=== PATIENT | female | born 1990 | race Caucasian/White ===

== ENCOUNTER → 2017-11-12 11:21 | Outpatient (CLI) | payer MEDICAID, SELFPAY ==
[2017-11-12 11:52] LABS: Basophils % 0.2 % (0.1-2.0); Eosinophils # 0.1 K/mm3 (0.0-0.4); Eosinophils % 0.9 % (0.1-12.0); Hematocrit 41.3 % (37.0-47.0); Hemoglobin 13.8 g/dL (12.2-16.2); Lymphocytes # 2.2 K/mm3 (0.7-4.5); Lymphocytes % 30.4 K/mm3 (10-50); Mean Corpuscular HGB Conc 33.4 g/dL (31.8-35.4); Mean Corpuscular Hemoglobin 33.1 pg (27.0-31.2); Mean Corpuscular Volume 99.1 fl (81-99); Mean Platelet Volume 7.9 fl (7.4-10.4); Monocytes # 0.2 K/mm3 (0.1-1.0); Monocytes % 3.3 % (1.7-9.3); Neutrophils # 4.8 K/mm3 (1.8-7.8); Neutrophils % 65.3 % (37.0-80.0); Platelet Count 300 K/mm3 (142-424); Red Blood Count 4.17 M/mm3 (4.20-5.40); Red Cell Distribution Width 12.6 % (11.5-17.5); White Blood Count 7.4 K/mm3 (4.8-10.8)
[2017-11-15 11:52] LABS: HIV Screen 4th Generation wRfx Non Reactive (Non Reactive); Hepatitis B Surface Antigen Negative (Negative); Hepatitis C Antibody >11.0 s/co ratio (0.0-0.9); Rapid Plasma Reagin Ab Titer Non Reactive (NonRea<1:1); Rubella Antibodies, IgG 1.67 index (Immune >0.99)
== END ==
PROVIDERS: PCP Nurse Practitioner Obstetrics & Gynecology; Visit Provider Nurse Practitioner Obstetrics & Gynecology
DX: Z34.90 Encounter for supervision of normal pregnancy, unspecified, unspecified trimester (principal)
CPT/HCPCS: 36415; 85025; 86592; 86703; 86762; 86850; 87340; 87380; G0432

== ENCOUNTER → 2017-11-30 13:15 | Outpatient (CLI) | payer MEDICAID, SELFPAY ==
--- NOTE | 2017-11-30 13:18 | US_ITS ---
US OB /maternal detail: OB ultrasound complete INDICATION: anatomy evaluation, OB ultrasound complete ITS.REASON: dates ORDERING PHYSICIAN: Russ Kahn MD PATIENT AGE: 27 years TECHNIQUE: ultrasound transabdominal scanning. COMPARISON: No previous relevant studies. FINDINGS: Single viable intrauterine gestation. cephalic position. Placenta: anterior placenta grade 1. There is adequate amount fluid. The cervix appears satisfactory. Closed and measuring 3 cm in length. Complete survey performed and was unremarkable on the submitted images as in PACS. No discrete anomalies identified on survey imaging by technologist. Active fetus. Three-vessel cord with satisfactory umbilical cord insertion. 4- chamber heart noted. Survey of brain & ventricles. Face and neck survey unremarkable. Diaphragm and chest views unremarkable. Abdomen: Both kidneys noted and unremarkable. Stomach noted and satisfactory. Spine: Survey of the spine satisfactory with no anomalies identified nor imaged. Both arms and legs noted. Amniotic Fluid: Adequate. Maternal adnexa: No significant findings. Measurements: Average ultrasound age 20w3d. Gestational Age not given. Estimated due date by ultrasound age 0804/16/2018. Estimated weight 354 grams. The weight percentile based on last menstrual period is not calculated. BPD = 20w3d OFD = 20w4d HC = 19w5d AC = 20w4d FL = 20w4d Heart Rate = 156 Cerebellum = 19w0d Humerus = 19w5d HC/AC is 1.12. CI is 79%. FL/BPD is 70%. FL/AC is 22%. IMPRESSION: Single live fetus which is in cephalic presentation with an average ultrasound age of 20 weeks 3 days. No obvious anomalies. Please see above for detail.
== END ==
PROVIDERS: Visit Provider Nurse Practitioner Obstetrics & Gynecology
DX: O26.841 Uterine size-date discrepancy, first trimester (principal); Z3A.13 13 weeks gestation of pregnancy
CPT/HCPCS: 76811

== ENCOUNTER → 2018-02-18 19:12 | Outpatient (REF) | payer MEDICAID, SELFPAY ==
[2018-02-18 18:57] LABS: Amphetamine/Metha Screen,Urine Negative ng/mL (<1000); Barbiturates Screen,Urine Negative ng/mL (<200); Benzodiazepines Screen,Urine Negative ng/mL (200); Cannabinoid Screen,Urine Negative ng/mL (<50); Cocaine Screen,Urine Negative ng/g (<300); Methadone Screen,Urine Negative ng/mL (<300); Opiate Screen,Urine Negative ng/mL (<300); Phencyclidine Screen,Urine Negative ng/mL (<25)
[2018-03-02 03:02] LABS: Buprenorphine, Urine POSITIVE
[2018-03-02 03:03] LABS: Buprenorphine POSITIVE; Norbuprenorphine POSITIVE
== END ==
LOC: LAB 19:12
PROVIDERS: Visit Provider Nurse Practitioner Obstetrics & Gynecology
DX: Z34.90 Encounter for supervision of normal pregnancy, unspecified, unspecified trimester (principal); O99.320 Drug use complicating pregnancy, unspecified trimester; F11.20 Opioid dependence, uncomplicated; Z79.891 Long term (current) use of opiate analgesic
CPT/HCPCS: 80305; 80307

== ENCOUNTER → 2018-02-26 13:51 | Outpatient (CLI) | payer MEDICAID, SELFPAY ==
--- NOTE | 2018-02-26 | US_ITS ---
US OB biophysical profile, US OB follow up, US SD Ratio umbilcal artery: Indication: Small for gestational age ITS.REASON: US OB- SGA ORDERING PHYSICIAN: Russ Kahn MD PATIENT AGE: 27 years COMPARISON: 11/30/2017 FINDINGS: There is a single live fetus which is in cephalic presentation. The following parameters are obtained: Average ultrasound age is 33w1d. Estimated due date by ultrasound is 04/15/2018. Estimated weight is 2051 g. This is 34th percentile based on established due date of 04/16/2018 BPD: 33w6d OFD: 33w2d HC: 32w2d AC: 32w6d FL: 32w2d heart rate:136 bpm. HC/AC: 1.04 (0.96-1.11) Cephalic index: 80% (70-86%) FL/BPD: 74% (71-87%) FL/AC: 22% (20-24%) Amniotic fluid index: 9 cm Qualitative AFV: 2 breathing movements: 2 Gross body movements: 2 Tone: 2 Biophysical profile score: 8/8 Doppler evaluation of the umbilical artery: There may be only a single umbilical artery. SD ratio: 4.7 Resistive index: 0.79 No obvious anomalies evident. Placenta: Anterior and grade 2 Cervix: Appears closed and measures 2 cm IMPRESSION: Single live fetus present in the cephalic presentation with an average ultrasound age of 33 weeks and 1 day. All parameters correlate. There has been adequate progression. Estimated weight is 2051 g which is 34th percentile based on established due date. The placenta is anterior and grade 2. Umbilical artery Doppler shows an elevated SD ratio of 4.7 with an elevated resistive index of 0.79. There does appear to be only a single umbilical artery
== END ==
PROVIDERS: PCP Family Medicine; Visit Provider Nurse Practitioner Obstetrics & Gynecology
DX: O36.5131 Maternal care for known or suspected placental insufficiency, third trimester, fetus 1 (principal)
CPT/HCPCS: 76816; 76819; 76820

== ENCOUNTER → 2018-03-28 16:05 | Outpatient (REF) | payer MEDICAID, SELFPAY | LOC: LAB 16:05 | PROVIDERS: Visit Provider Nurse Practitioner Obstetrics & Gynecology | DX: Z34.90 Encounter for supervision of normal pregnancy, unspecified, unspecified trimester (principal) | CPT/HCPCS: 86403 ==

== ENCOUNTER 2018-04-03 13:43 | Inpatient (IN) ==
[2018-04-03 14:13] VITALS: BP 129/72
[2018-04-03 14:25] LABS: Basophils % 0.2 % (0.1-2.0); Eosinophils % 0.5 % (0.1-12.0); Hematocrit 36.6 % (37.0-47.0); Hemoglobin 12.3 g/dL (12.2-16.2); Lymphocytes % 22.4 K/mm3 (10-50); Mean Corpuscular HGB Conc 33.6 g/dL (31.8-35.4); Mean Corpuscular Hemoglobin 32.8 pg (27.0-31.2); Mean Corpuscular Volume 97.7 fl (81-99); Mean Platelet Volume 9.5 fl (7.4-10.4); Monocytes # 0.3 K/mm3 (0.1-1.0); Monocytes % 3.4 % (1.7-9.3); Neutrophils # 6.6 K/mm3 (1.8-7.8); Neutrophils % 73.5 % (37.0-80.0); Platelet Count 177 K/mm3 (142-424); Red Blood Count 3.74 M/mm3 (4.20-5.40); Red Cell Distribution Width 12.4 % (11.5-17.5)
[2018-04-03 14:46] LABS: Microscopic, Urine URINE MICROSCOPIC (MICROSCOPIC)
[2018-04-03 14:48] LABS: Appearance,Urine SL CLOUDY (Clear); Bilirubin,Urine Negative (Negative); Blood, Urine Negative (Negative); Color,Urine YELLOW (Yellow); Glucose,Urine (UA) Negative (Negative); Ketones,Urine Negative (Negative); Leukocyte Esterase,Urine 3+ (Negative); Protein,Urine Negative (Negative); Urobilinogen,Urine 0.2 EU/dl (0.2)
[2018-04-03 15:00] LABS: Bacteria,Urine 4+ /lpf; Squamous Epithelial Cell,Urine 20-50 #/hpf (0-5)
[2018-04-03 15:02] LABS: Amphetamine/Metha Screen,Urine Negative ng/mL (<1000); Barbiturates Screen,Urine Negative ng/mL (<200); Benzodiazepines Screen,Urine Negative ng/mL (<200); Cannabinoid Screen,Urine Negative ng/mL (<50); Cocaine Screen,Urine Negative ng/mL (<300); Methadone Screen,Urine Negative ng/mL (<300); Opiate Screen,Urine Negative ng/mL (<300); Phencyclidine Screen,Urine Negative ng/mL (<25)
--- NOTE | 2018-04-03 15:23 | History & Physical Report ---
OB - H&P: HPI Antepartum - History of Present Illness Chief complaint: Contractions History of present illness: She started having regular contractions by 1030 this morning. She is a 3 para 2 at 38+ weeks gestational age. - History of Present Criteria for establishing EDC:: LMP confirmed by 1st trimester US care: good care Ultrasounds: normal 1st trimester US, normal mid trimester US Obstetrical complications: none Medical complications: none [facility] History I have reviewed the patient's past medical history: Yes Other Surgeries: No: Amputation: No Fractures: No - *Social History Smoking Status: Current every day smoker Alcohol Intake: never Substance Use Type: denies use *Family Hx:: No significant family history Para: 2 Review of Systems - Review of Systems Review of systems:: pertinent systems reviewed and negative unless documented below Meds Home Medications Medication Instructions Recorded Confirmed Type buprenorphine HCl 8 mg sublingual 8 mg SUBLINGUAL BID 01/04/18 04/03/18 History tablet Ferrous Sulfate 325 mg PO DAILY 04/03/18 04/03/18 History Vit Calc,Iron,Folic [Kpn] 1 tab PO ONCE 04/03/18 04/03/18 History metroNIDAZOLE [Flagyl] 500 mg PO BID 04/03/18 04/03/18 History Allergies Allergy/AdvReac Type Severity Reaction Status Date / Time No Known Allergies Allergy Verified 04/01/18 14:25 OB - H&P: Exam - Physical Exam Vital signs: Temp Pulse Resp BP Pulse Ox 98.6 F 87 20 129/72 98 04/03/18 13:49 04/03/18 13:49 04/03/18 13:49 04/03/18 13:49 04/03/18 13:49 - Constitutional no acute distress - Routine HEENT Exam Head: Present: normocephalic - Routine Neck Exam Present: supple - Routine Respiratory Exam Comments: She is breathing normally and in no respiratory distress - Routine Cardiovascular Exam Present: RRR - Routine Abdominal Exam Present: soft Comments: Gravid abdomen - Routine Exam Comments: Her cervix is 8 cm dilated and 100% effaced. She is station 0. I ruptured membranes and there is clear fluid. She has an epidural OB - Results - Labs Labs: Short CBC 04/03/18 Range/Units 14:08 WBC 9.0 (4.8-10.8) K/mm3 Hgb 12.3 (12.2-16.2) g/dL Hct 36.6 L (37.0-47.0) % Plt Count 177 (142-424) K/mm3 Urine 04/03/18 Range/Units 14:36 Urine Color Yellow (Yellow) Urine Appearance Sl cloudy (Clear) Urine pH 8.0 (5.0-8.5) Ur Specific [place] 1.010 (1.005-1.030) Urine Protein Negative (Negative) Urine Glucose (UA) Negative (Negative) OB - A/P Antepartum (1) complicated by subutex maintenance, antepartum Current visit: No Status: Acute (2) Chronic hepatitis C complicating , antepartum Current visit: No Status: Chronic - Additional Plan Planning to breastfeed?: Yes Plan: expectant management Additional Information:: She is 8 cm dilated and I ruptured her membranes. We will start oxytocin and expected vaginal delivery.
--- NOTE | 2018-04-03 17:19 | Procedure Note ---
- Delivery Note Delivery Date:: 04/03/18 Delivery Time:: 17:02 Anesthesia Type: Epidural Was labor medically induced?: No Induction method: none delivered prior to 39 weeks?: Yes Justification for early elective delivery:: Active Labor Infant Gender: Female at 1 minute: 8 at 5 minutes: 9 AF:: Clear fluid Delivery Procedure:: She is a 19-year-old 3 para 2 who was 38+ weeks gestational age. She came in in active labor and was found to be 7 cm dilated. She had her membranes ruptured and under labor epidural progressed to full dilation. She delivered spontaneously a liveborn female child at 5:02 PM in the evening of April 03, 2018. On deliver the head the anterior shoulder then delivered followed by the rest of the 's body atraumatically. The baby was active and crying so we elected to let the court continue to pulsate for approximately 1 minute. The nasopharynx and oropharynx were bulb suctioned. The cord was then clamped and cut and the was placed on the mother's abdomen for further care. The nurses assigned Apgars of 8 at 1 minute and 9 at 5 minutes. We then obtained cord blood as well as cord pH. The pH was 7.32. Using gentle traction on the cord and countertraction on the fundus I was able to easily the placenta intact. Had a normal three-vessel cord. There were no perineal or vaginal lacerations. She is known to have hepatitis C positive. She plans to breast-feed. Her estimated blood loss was approximately 200 cc. Placental Delivery Description: Spontaneous
--- NOTE | 2018-04-04 06:43 | Progress Note ---
[facility] Anesthesia Checklist - Patient Identification Patient Identification: Arm Band, Verbal (Name & ) - Structural Data Admitted From: Home Planned Operative Procedure/s: Labor Epidural Consent for Planned Operative Procedure(s) Verified: Yes Verified Documents: Surgical Consent, History and Physical - Additional verifications Patient : Yes Anesthesia Reactions: No - Airway Assessment C-Spine Mobility Assessed: Yes TMJ Mobility Assessed: Yes Dentition: Good Dentition - Neurological Assessment Level of Consciousness: Awake Hx Seizures: No Numbness or tingling in extremities: No - Anesthesia Plan Anesthesia Risk discussed: Yes Anesthesia Plan: Verified ASA Class: III Anesthesia Type: Epidural [facility] Anesthesia HX I have reviewed the patient's past medical history: Yes Other Medical History: Reports: Other (Hx drug abuse, Hep C, smokes tobacco) Laterality Cases: Bilateral: Tonsillectomy Other Surgeries: Yes: Cholecystectomy. No: Amputation: No Fractures: No *Family Hx:: No significant family history
--- NOTE | 2018-04-04 08:16 | Progress Note ---
Internal Medicine - PN: Lance *Date: 04/04/18 *Time: 08:15 Interval history: She continues to do well. She is eating and drinking and ambulating. She is breast-feeding. Her lochia is normal. Her pain is controlled. Exam Vital signs and Labs for Last 24 Hours: Temp Pulse Resp BP Pulse Ox 98.6 F 87 20 129/72 98 04/03/18 13:49 04/03/18 13:49 04/03/18 13:49 04/03/18 13:49 04/03/18 13:49 Laboratory Results - last 24 hr 04/03/18 14:08: WBC 9.0, RBC 3.74 L, Hgb 12.3, Hct 36.6 L, MCV 97.7, MCH 32.8 H , MCHC 33.6, RDW 12.4, Plt Count 177, MPV 9.5, Neut % (Auto) 73.5, Lymph % (Auto ) 22.4, [place] % (Auto) 3.4, Eos % (Auto) 0.5, Baso % (Auto) 0.2, Neut # (Auto) 6.6, Lymph # (Auto) 2.0, [place] # (Auto) 0.3, Eos # (Auto) 0.0, Baso # (Auto) 0.0 04/03/18 14:08: Blood Type A Positive, Antibody Screen Negative 04/03/18 14:36: Urine Color Yellow, Urine Appearance Sl cloudy, Urine pH 8.0, Ur Specific [place] 1.010, Urine Protein Negative, Urine Glucose (UA) Negative, Urine Ketones Negative, Urine Blood Negative, Urine Nitrate Negative, Urine Bilirubin Negative, Urine Urobilinogen 0.2, Ur Leukocyte Esterase 3+ A, Urine RBC None, Urine WBC 5-10, Ur Squamous Epith Cells 20-50, Urine Bacteria 4+ 04/03/18 14:36: Urine Opiates Screen Negative, Urine Methadone Screen Negative, Ur Barbituates Screen Negative, Ur Phencyclidine Scrn Negative, Ur Amphetamines Screen Negative, U Benzodiazepines Scrn Negative, Urine Cocaine Screen Negative , U Marijuana (THC) Screen Negative 04/03/18 17:12: Cord ABG pH 7.32 L I & O for Last 24 hours: Intake & Output 04/01/18 04/02/18 04/03/18 04/04/18 11:59 11:59 11:59 11:59 Weight 125 lb - Constitutional no acute distress Assessment and Plan (1) complicated by subutex maintenance, antepartum Current visit: No Status: Acute Category: Medical Code(s): O99.320 - Drug use complicating , unspecified trimester; F11.20 - Opioid dependence, uncomplicated; 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 We will plan to send her home tomorrow.
[2018-04-04 08:20] LABS: Hemoglobin 12.3 g/dL (12.2-16.2)
--- NOTE | 2018-04-04 17:49 | Discharge Summary ---
General - General Admission date:: 04/03/18 Discharge date: 04/05/18 HPI HPI: She is a 27-year-old 4 para 2 aborta 1 who is 38 and 1 weeks gestation. She came in active labor and was found to have an centimeters dilated. Result of that she is admitted for delivery. Hospital Course Hospital Course: She progressed under labor epidural to full dilation and delivered spontaneously a liveborn female child at 5:02 PM in the evening of the 2017. The baby weighed 6 lbs. 0 oz. and was 18 inches long. She had Apgars of 8 at 1 minute and 9 at 5 minutes. There were no perineal or vaginal lacerations She has a positive blood, she is rubella immune and was group A streptococcus negative. She takes Subutex. She was seen by social media sr strategy manager and apparently they have decided not to send the baby home with her. She is discharged home to follow-up with me in approximately 2 weeks time. She will continue with her vitamins and iron. She will continue with over- the-counter analgesics. Objective Vital signs: Temp Pulse Resp BP Pulse Ox 98.6 F 87 20 129/72 98 04/03/18 13:49 04/03/18 13:49 04/03/18 13:49 04/03/18 13:49 04/03/18 13:49 no acute distress Results Labs on day of discharge: Labs from last 24 hours 04/04/18 07:35 Hgb 12.3 Hct 36.0 L Preliminary micro results at discharge 04/03/18 14:36 Urine Culture - Preliminary Urine,Clean Catch NO GROWTH AFTER 24 HOURS DS: Diagnosis - Discharge Diagnosis (1) complicated by subutex maintenance, antepartum Status: Acute (2) Chronic hepatitis C complicating , antepartum Status: Chronic (3) Normal delivery at term Status: Acute Discharge Plan - Patient Discharge Instructions ACTIVITY: No heavy lifting DIET: continue same diet - Follow up Plan Disposition: Home, Self-Intermediate Medications: Home Medications Medication Instructions Recorded Confirmed Type buprenorphine HCl 8 mg sublingual 8 mg SUBLINGUAL BID 01/04/18 04/03/18 History tablet Ferrous Sulfate 325 mg PO DAILY 04/03/18 04/03/18 History Vit Calc,Iron,Folic [Kpn] 1 tab PO DAILY 04/03/18 04/04/18 History Prescriptions/Medication Reconciliation: Continue buprenorphine HCl 8 mg sublingual tablet 8 mg SUBLINGUAL BID Ferrous Sulfate 325 mg PO DAILY Vit Calc,Iron,Folic [Kpn] 1 tab PO DAILY
--- NOTE | 2018-04-05 12:23 | Discharge Summary ---
DS: Providers Date of admission: 04/03/18 14:28 Attending physician on admission: Russ Kahn Consults: 04/03/18 14:21 Care Management Consult [Consult to Case Management] [CONS] Routine Comment: pt took subutex during Discharging clinician: Neema Guy DS: Diagnosis - Discharge Diagnosis (1) complicated by subutex maintenance, antepartum Status: Acute (2) Chronic hepatitis C complicating , antepartum Status: Chronic (3) Normal delivery at term Status: Acute DS: Medications - Discharge Medications Prescriptions: New Nicotine [Nicotine Patch 21mg/24hrs] 21 mg TD DAILY #30 patch Continue buprenorphine HCl 8 mg sublingual tablet 8 mg SUBLINGUAL BID Ferrous Sulfate 325 mg PO DAILY Vit Calc,Iron,Folic [Kpn] 1 tab PO DAILY OB - DS: Summary Hospital course: Ms. Mitchell is a 27 year old female s/p and discharged on PPD #2. consumer services consultant consult with placement of with family member resulting from cabinet case. Medical course uncomplicated. Will continue subutex through clinic after discharge. Time spent discussing smoking cessation with patient: 3 to 10 minutes - Peripartum Data Delivery method: spontaneous vaginal delivery complications: none - Status at Discharge Functional status at discharge: independent ambulation Overall status at discharge: patient is progressing back to baseline - Time Spent with Patient Total time spent providing and/or coordinating discharge services: Exam Vital signs and Labs for Last 24 Hours: Temp Pulse Resp BP Pulse Ox 98.6 F 87 20 129/72 98 04/03/18 13:49 04/03/18 13:49 04/03/18 13:49 04/03/18 13:49 04/03/18 13:49 I & O for Last 24 hours: Intake & Output 04/03/18 04/04/18 04/05/18 04/06/18 11:59 11:59 11:59 11:59 Weight 125 lb Microbiology Reports for the Last 24 Hours: Microbiology 04/03/18 14:36 Urine,Clean Catch Urine Culture - Preliminary NO GROWTH AFTER 24 HOURS - Constitutional no acute distress - *Routine Respiratory Exam Absent: respiratory distress - *Routine Cardiovascular Exam Absent: tachycardia - *Routine Abdominal Exam Present: soft. Absent: tenderness, distended - *Routine Skin Exam Present: intact, dry - *Routine Neurological Exam Present: alert, oriented X3 - Routine Psychiatric Exam Present: normal affect Results Labs on day of discharge: Preliminary micro results at discharge 04/03/18 14:36 Urine Culture - Preliminary Urine,Clean Catch NO GROWTH AFTER 24 HOURS Discharge Plan - Patient Discharge Instructions ACTIVITY: No heavy lifting, Other (pelvic rest) DIET: continue same diet Additional Instructions: NO HEAVY LIFTING NOTHING IN VAGINA FOR [address] FOLLOW-UP WITH DR. KAHN ON 04/17/2018 @ 2:00 Patient Instructions: [facility] Post Discharge Instructions - Follow up Plan Disposition: Home, Self-Half-Way Medications: Home Medications Medication Instructions Recorded Confirmed Type buprenorphine HCl 8 mg sublingual 8 mg SUBLINGUAL BID 01/04/18 04/03/18 History tablet Ferrous Sulfate 325 mg PO DAILY 04/03/18 04/03/18 History Vit Calc,Iron,Folic [Kpn] 1 tab PO DAILY 04/03/18 04/04/18 History Prescriptions/Medication Reconciliation: New Nicotine [Nicotine Patch 21mg/24hrs] 21 mg TD DAILY #30 patch Continue buprenorphine HCl 8 mg sublingual tablet 8 mg SUBLINGUAL BID Ferrous Sulfate 325 mg PO DAILY Vit Calc,Iron,Folic [Kpn] 1 tab PO DAILY
== END 2018-04-05 12:20 | disposition home or self-care (01) ==
LOC: OBOUT 13:43 → OB 13:45
PROVIDERS: ADMIT Nurse Practitioner Obstetrics & Gynecology; ATTEND Nurse Practitioner Obstetrics & Gynecology

== ENCOUNTER → 2019-08-20 14:50 | Outpatient (CLI) | payer MEDICAID, SELFPAY ==
--- NOTE | 2019-08-20 14:51 | US_ITS ---
PROCEDURE: US OB TRANSVAGINAL CLINICAL INDICATION: US OB Dates COMPARISON: OBBIO US OB biophysical profile from 02/26/2018 FINDINGS: There is a single live intrauterine gestation with an average ultrasound age of 12 weeks 2 days. BPD is 12 weeks 5 days, HC 12 weeks 3 days, AC 12 weeks 1 day, FL 12 weeks 1 day, crown-rump length 11 weeks 6 days. heart and body motion noted. Chorion and amnion have not yet fused. Placenta is forming posteriorly. Yolk sac is present. Unremarkable adnexa. heart tones noted within FHR 154 beats per minute IMPRESSION: Live IUP with an average ultrasound age of 12 weeks 2 days Estimated due date by Ultrasound is 03/01/2020 Dictated by: Haider Santoro MD 08/20/2019 18:04 Electronically signed by Haider Santoro MD in [place] 08/20/2019 18:04
== END ==
PROVIDERS: Visit Provider Nurse Practitioner Obstetrics & Gynecology
DX: O26.841 Uterine size-date discrepancy, first trimester (principal)
CPT/HCPCS: 76817

== ENCOUNTER → 2019-09-29 15:56 | Outpatient (CLI) | payer MEDICAID, SELFPAY ==
[2019-09-29 16:20] LABS: Basophils % 0.3 % (0.1-2.0); Eosinophils # 0.1 K/mm3 (0.0-0.4); Eosinophils % 0.8 % (0.1-12.0); Hematocrit 41.1 % (37.0-47.0); Hemoglobin 13.8 g/dL (12.2-16.2); Lymphocytes # 2.9 K/mm3 (0.7-4.5); Lymphocytes % 33.1 % (10-50); Mean Corpuscular HGB Conc 33.5 g/dL (31.8-35.4); Mean Corpuscular Hemoglobin 32.9 pg (27.0-31.2); Mean Platelet Volume 8.1 fl (7.4-10.4); Monocytes # 0.2 K/mm3 (0.1-1.0); Monocytes % 2.3 % (1.7-9.3); Neutrophils # 5.5 K/mm3 (1.8-7.8); Neutrophils % 63.6 % (37.0-80.0); Platelet Count 246 K/mm3 (142-424); Red Cell Distribution Width 13.1 % (11.5-17.5); White Blood Count 8.7 K/mm3 (4.8-10.8)
[2019-10-01 10:29] LABS: Rapid Plasma Reagin Ab Titer Non Reactive (NonRea<1:1)
[2019-10-01 18:18] LABS: HIV Screen 4th Generation wRfx Non Reactive (Non Reactive); Hepatitis B Surface Antigen Negative (Negative); Hepatitis C Antibody >11.0 s/co ratio (0.0-0.9); Rubella Antibodies, IgG 1.79 index (Immune >0.99)
[2019-10-04 23:50] LABS: HCV Genotype Charge YES; Hepatitis C Genotype 3 (.)
== END ==
PROVIDERS: Visit Provider Nurse Practitioner Obstetrics & Gynecology
DX: Z34.90 Encounter for supervision of normal pregnancy, unspecified, unspecified trimester (principal)
CPT/HCPCS: 36415; 85025; 86592; 86703; 86762; 86850; 87340; 87380; 87522; 87902; G0432

== ENCOUNTER → 2019-10-13 15:01 | Outpatient (CLI) | payer MEDICAID, SELFPAY ==
--- NOTE | 2019-10-13 15:06 | US_ITS ---
PROCEDURE: US OB /MATERNAL DETAIL CLINICAL INDICATION: screening for chromosomal anomalies Anatomy exam COMPARISON: US OB TRANSVAGINAL from 08/20/2019 FINDINGS: There is a single live fetus in breech presentation. The placenta is posterior and fundal in implantation. There is average amount of of amniotic fluid. The cervix is closed and measures 3.5 cm transabdominal. Complete survey performed and was unremarkable on the submitted images as in PACS. No discrete anomalies identified on survey imaging by technologist. Active fetus. Three-vessel cord with satisfactory umbilical cord insertion. 4- chamber heart noted. Survey of brain & ventricles Unremarkable. Face and neck survey unremarkable. Diaphragm and chest views unremarkable. Abdomen: Both kidneys noted and unremarkable. Stomach noted and satisfactory. Spine: Survey of the spine satisfactory with no anomalies identified nor imaged. Both arms and legs noted. Amniotic Fluid: Adequate. Maternal adnexa: No significant findings. Measurements: Average ultrasound age 19weeks 5days. Gestational Age 20 weeks 0 days Estimated due date by ultrasound age 0603/03/2020. Estimated weight 312g BPD = 19weeks 6days OFD = 19 weeks 6 days HC = 19weeks AC = 20weeks FL = 19weeks 6days Growth Percentile= 33% Heart Rate = 142bpm Cerebellum = 19weeks 3days Humerus = 20weeks HC/AC is 1.11 CI is 0.8 FL/BPD is 0.7 FL/AC is 0.22 IMPRESSION: Live IUP in breech presentation with an average ultrasound age of 19 weeks 5 days. All parameters correlate. heart body motion noted with no obvious anomalies. Please see above for detail. Dictated by: Haider Santoro MD 10/13/2019 17:25 Electronically signed by Haider Santoro MD in [place] 10/13/2019 17:25
== END ==
PROVIDERS: Visit Provider Nurse Practitioner Obstetrics & Gynecology
DX: Z36.0 Encounter for antenatal screening for chromosomal anomalies (principal)
CPT/HCPCS: 76811

== ENCOUNTER → 2019-12-27 08:59 | Outpatient (CLI) | payer MEDICAID, SELFPAY ==
[2019-12-27 09:48] LABS: Glucose,Fasting 78 mg/dl (74-100)
[2019-12-27 10:43] LABS: Glucose 1 Hour 74 mg/dL (74-100)
== END ==
PROVIDERS: Visit Provider Nurse Practitioner Obstetrics & Gynecology
DX: Z34.90 Encounter for supervision of normal pregnancy, unspecified, unspecified trimester (principal)
CPT/HCPCS: 36415; 82951

== ENCOUNTER → 2020-01-14 15:22 | Outpatient (CLI) | payer MEDICAID, SELFPAY ==
--- NOTE | 2020-01-14 15:27 | US_ITS ---
PROCEDURE: US OB BIOPHYSICAL PROFILE CLINICAL INDICATION: 20 wk gestation of and (SGA) Small for gestational TECHNIQUE: FINDINGS: The following parameters are obtained: Average ultrasound age is Average 31weeks 6days Estimated due date by ultrasound is 03/11/2020. Estimated weight is 1,799g. The this is 7th percentile indicating small for gestational age. The fetus is in cephalic presentation. The cervix is closed at 4 cm. Placenta is posterior in implantation and grade 3. No previa. BPD: 32 weeks 0 days OFD: 32 weeks 2 days HC: 32 weeks 0 days AC: 31 weeks 2 days FL: 32 weeks 1 day heart rate: 150bpm bpm. HC/AC: 1.07 Cephalic index: 0.77 FL/BPD: 0.78 FL/AC: 0.23 Amniotic fluid index: 11.39cm Qualitative AFV: 2 breathing movements: 2 Gross body movements: 2 Tone: 2 Biophysical profile score: 8 IMPRESSION: There is a single live intrauterine gestation which is in cephalic presentation with an average ultrasound age of 31 weeks and 6 days. Estimated weight is 1799 g which is 7th percentile indicating small for gestational age. Placenta is posterior and grade 3. Biophysical profile is 8 of 8. Amniotic fluid index is normal at 11 cm. Please see above for details Dictated by: Haider Santoro MD 01/14/2020 19:16 Electronically signed by Haider Santoro MD in [place] 01/14/2020 19:16
== END ==
PROVIDERS: Visit Provider Nurse Practitioner Obstetrics & Gynecology
DX: O36.5990 Maternal care for other known or suspected poor fetal growth, unspecified trimester, not applicable or unspecified (principal); Z3A.20 20 weeks gestation of pregnancy
CPT/HCPCS: 76816; 76819

== ENCOUNTER → 2020-02-04 17:06 | Outpatient (CLI) | payer MEDICAID, SELFPAY | PROVIDERS: Visit Provider Nurse Practitioner Obstetrics & Gynecology | DX: Z34.90 Encounter for supervision of normal pregnancy, unspecified, unspecified trimester (principal) | CPT/HCPCS: 86403 ==

== ENCOUNTER 2020-02-17 05:26 | Inpatient (IN) | payer MEDICAID, SELFPAY ==
[2020-02-17] VITALS (7 sets, daily range): BP systolic 115–126; BP diastolic 76–94; PULSE 53–71; RESP 16–18; TEMP 36.7–37.1; O2SAT 99–100; BMI 24.3
[2020-02-17 06:32] LABS: Microscopic, Urine URINE MICROSCOPIC (MICROSCOPIC)
[2020-02-17 06:33] LABS: Basophils % 0.2 % (0.1-2.0); Eosinophils # 0.2 K/mm3 (0.0-0.4); Hematocrit 34.4 % (37.0-47.0); Hemoglobin 11.9 g/dL (12.2-16.2); Lymphocytes # 3.3 K/mm3 (0.7-4.5); Lymphocytes % 42.3 % (10-50); Mean Corpuscular HGB Conc 34.7 g/dL (31.8-35.4); Mean Corpuscular Hemoglobin 34.6 pg (27.0-31.2); Mean Corpuscular Volume 99.7 fl (81-99); Mean Platelet Volume 9.3 fl (7.4-10.4); Monocytes # 0.3 K/mm3 (0.1-1.0); Monocytes % 3.9 % (1.7-9.3); Neutrophils % 51.6 % (37.0-80.0); Platelet Count 191 K/mm3 (142-424); Red Blood Count 3.45 M/mm3 (4.20-5.40); Red Cell Distribution Width 12.6 % (11.5-17.5); White Blood Count 7.7 K/mm3 (4.8-10.8)
[2020-02-17 06:47] LABS: Appearance,Urine CLEAR (Clear); Bilirubin,Urine Negative (Negative); Blood, Urine Negative (Negative); Color,Urine DK YELLOW (Yellow); Glucose,Urine (UA) Negative (Negative); Ketones,Urine TRACE (Negative); Leukocyte Esterase,Urine 2+ (Negative); Nitrate,Urine Negative (Negative); Protein,Urine Negative (Negative); Specific Gravity, Urine >= 1.030 (1.005-1.030)
[2020-02-17 06:50] LABS: Bacteria,Urine 1+ /lpf
[2020-02-17 06:54] LABS: Amphetamine/Metha Screen,Urine Negative ng/ml (<1000)
[2020-02-17 06:55] LABS: Barbiturates Screen,Urine Negative ng/ml (<200)
[2020-02-17 06:56] LABS: Benzodiazepines Screen,Urine Negative ng/ml (<200); Cannabinoid Screen,Urine Negative ng/ml (<50)
[2020-02-17 06:57] LABS: Cocaine Screen,Urine Negative ng/ml (<300)
[2020-02-17 06:58] LABS: Methadone Screen,Urine Negative ng/ml (<300); Opiate Screen,Urine Negative ng/ml (<300)
[2020-02-17 06:59] LABS: Phencyclidine Screen,Urine Negative ng/ml (<25)
[2020-02-17 07:18] LABS: Coronavirus 19 IgG Antibody Negative (Negative); Coronavirus 19 IgM Antibody Negative (Negative)
--- NOTE | 2020-02-17 08:30 | HMH.LABNOT ---
Labor Note - Subjective: Date: 02/17/20 Time: 08:30 regular contraction - Objective: NST:: Reactive Contractions:: every 2-3 minutes Cervical Dilation:: 2-3 Effacement:: 50% Station: -1 Membranes: artificially ruptured - Fetus: Monitoring?: Yes monitoring type:: External - Assessment: Labor progressing?: Yes Cephalopelvic disproportion?: No Patient Problems: All Active Problems (Acute) Positive urine drug screen (Acute) - Plan: Anesthesia for epidural?: Yes Continue to labor down?: Yes Plan for ?: No Continue to monitor?: Yes Start pushing?: No Comment:: I ruptured her membranes and there was clear fluid.
--- NOTE | 2020-02-17 09:17 | HMH.OBAPHP ---
OB - H&P: HPI Antepartum - History of Present Illness Chief complaint: Intrauterine growth restriction. Comments: She is a 29-year-old 4 para 3 at 37+ weeks gestational age. She has been followed for intrauterine growth restriction and since the baby is less than the third centile we elected to deliver her at term. - History of Present Criteria for establishing EDC:: LMP confirmed by 1st trimester US care: good care Ultrasounds: normal 1st trimester US, normal mid trimester US Obstetrical complications: growth restriction Medical complications: none [facility] History I have reviewed the patient's past medical history: Yes Medical History: Denies:: Seizures *Have you ever received a pneumonia vaccine?: No *Have you received a flu vaccine this season?: No Other Medical History: Reports: Other Laterality Cases: Bilateral: Tonsillectomy Other Surgeries: Yes: Cholecystectomy. No: Amputation: No Fractures: No - *Social History Smoking Status: Current every day smoker Alcohol Intake: never Substance Use Type: denies use *Occupational Status:: employed *Travel in the last 8 weeks: None Family Hx:: No significant family history PACKING ATTENDANT history: Spontaneous Para: 3 Review of Systems - Review of Systems Review of systems:: pertinent systems reviewed and negative unless documented below Meds Home Medications Medication Instructions Recorded Confirmed Type buprenorphine HCl 8 mg sublingual 20 mg SUBLINGUAL DAILY 01/04/18 02/17/20 History tablet RX: Vit Calc,Iron,Folic 1 tab PO DAILY 04/03/18 02/17/20 History [Kpn] RX: Ferrous Fumarate [Ferretts] 325 mg PO DAILY 02/17/20 02/17/20 History Allergies Allergy/AdvReac Type Severity Reaction Status Date / Time No Known Allergies Allergy Verified 02/13/20 11:06 OB - H&P: Exam - Physical Exam Vital signs: Temp Pulse Resp BP Pulse Ox 98.5 F 53 L 18 115/76 99 02/17/20 08:09 02/17/20 08:09 02/17/20 08:09 02/17/20 08:09 02/17/20 08:09 - Constitutional no acute distress - Routine HEENT Exam Head: Present: normocephalic Eye: Present: EOMI, PERRL ENT: Present: mucous membranes moist - Routine Neck Exam Present: supple, full ROM - Routine Respiratory Exam Absent: accessory muscle use (good air entry bilaterally), respiratory distress, wheezes, crackles - Routine Cardiovascular Exam Present: RRR. Absent: murmur - Routine Abdominal Exam Present: soft, normoactive bowel sounds. Absent: tenderness, distended, guarding - Routine Rectal Exam Patient deferred: visual exam, digital exam - Routine Exam Patient deferred: external exam, groin exam, perineal exam - Routine Extremities Exam Present: full ROM. Absent: cyanosis, edema - Routine Skin Exam Present: intact. Absent: cyanosis - Routine Neurological Exam Present: alert, oriented X3 - Routine Psychiatric Exam Present: normal affect OB - Results - Labs Labs: Short CBC 02/17/20 Range/Units 06:15 WBC 7.7 (4.8-10.8) K/mm3 Hgb 11.9 L (12.2-16.2) g/dL Hct 34.4 L (37.0-47.0) % Plt Count 191 (142-424) K/mm3 Urine 02/17/20 Range/Units 06:20 Urine Color Dk yellow (Yellow) Urine Appearance Clear (Clear) Urine pH 6.0 (5.0-8.5) Ur Specific [place] >= 1.030 (1.005-1.030) Urine Protein Negative (Negative) Urine Glucose (UA) Negative (Negative) OB - A/P Antepartum (1) Intrauterine growth restriction (IUGR) affecting care of mother Current visit: Yes Status: Acute (2) complicated by subutex maintenance, antepartum Current visit: Yes Status: Acute (3) Normal delivery Current visit: Yes Status: Acute - Additional Plan Planning to breastfeed?: Yes Plan: induction Additional Information:: She has severe intrauterine growth restriction with the baby less than the third centile. Since she is 37+ weeks gestational age we
--- NOTE | 2020-02-17 09:31 | HMH.ANESCL ---
[facility] Anesthesia Checklist - Structural Data Admitted From: Inpatient Planned Operative Procedure/s: labor epidural Consent for Planned Operative Procedure(s) Verified: Yes - Additional verifications Anesthesia Reactions: No - Airway Assessment C-Spine Mobility Assessed: Yes TMJ Mobility Assessed: Yes Dentition: Good Dentition - Neurological Assessment Level of Consciousness: Awake, Alert, Appropriate - Anesthesia Plan Anesthesia Risk discussed: Yes Anesthesia Plan: Verified ASA Class: II Anesthesia Type: Epidural [facility] History I have reviewed the patient's past medical history: Yes Medical History: Denies:: Seizures *Have you ever received a pneumonia vaccine?: No *Have you received a flu vaccine this season?: No Other Medical History: Reports: Other Anesthesia experience/problems:: none Laterality Cases: Bilateral: Tonsillectomy Other Surgeries: Yes: Cholecystectomy. No: Amputation: No Fractures: No - *Social History Smoking Status: Current every day smoker Alcohol Intake: never Substance Use Type: denies use *Occupational Status:: employed *Travel in the last 8 weeks: None Family Hx:: No significant family history INFORMATION TECH history: Spontaneous Para: 3
--- NOTE | 2020-02-17 11:36 | HMH.LABNOT ---
Labor Note - Subjective: Date: 02/17/20 Time: 11:36 regular contraction - Objective: NST:: Reactive Cervical Dilation:: 4 Effacement:: 90% Station: -1 Membranes: artificially ruptured - Fetus: Monitoring?: Yes monitoring type:: External - Assessment: Labor progressing?: Yes Cephalopelvic disproportion?: No Patient Problems: All Active Problems Intrauterine growth restriction (IUGR) affecting care of mother (Acute) complicated by subutex maintenance, antepartum (Acute) Normal delivery (Acute) (Acute) Positive urine drug screen (Acute) - Plan: Anesthesia for epidural?: Yes Continue to labor down?: Yes Plan for ?: No Continue to monitor?: Yes Start pushing?: No
--- NOTE | 2020-02-17 13:58 | HMH.LABNOT ---
Labor Note - Subjective: Date: 02/17/20 Time: 13:40 regular contraction - Objective: NST:: Reactive Contractions:: every 2-3 minutes Cervical Dilation:: 7 Effacement:: 100% Station: 0 Membranes: artificially ruptured - Fetus: Monitoring?: Yes monitoring type:: External - Assessment: Labor progressing?: Yes Cephalopelvic disproportion?: No Patient Problems: All Active Problems Intrauterine growth restriction (IUGR) affecting care of mother (Acute) complicated by subutex maintenance, antepartum (Acute) Normal delivery (Acute) (Acute) Positive urine drug screen (Acute) - Plan: Anesthesia for epidural?: Yes Continue to labor down?: Yes Plan for ?: No Continue to monitor?: Yes Start pushing?: No
--- NOTE | 2020-02-17 14:48 | HMH.DN ---
- Delivery Note Delivery Date:: 02/17/20 Delivery Time:: 14:37 Anesthesia Type: Epidural Was labor medically induced?: Yes Induction method: per pitocin protocol Gestational age (weeks): 37 Infant delivered prior to 39 weeks?: Yes Justification for early elective delivery:: IUGR Infant Gender: Female at 1 minute: 8 at 5 minutes: 9 Delivery Procedure:: She is a 29-year-old 5 para 3 aborta 1 who is 37 weeks gestational age. She has been followed with a small for gestational age and as result of that was brought in for induction of labor at term. She was started on IV oxytocin and had her membranes ruptured. Under labor epidural she progressed to full dilation and delivered spontaneously a liveborn female child at 2:37 PM in the afternoon of February 17, 2020. On deliver the head it was noted that there is a tight nuchal cord. I was able to deliver the rest the 's body atraumatically. The cord was then reduced. The baby was vigorous. We allowed the cord to continue to pulsate for 1 minute. The cord was then doubly clamped and cut. The infant was placed on the mother's abdomen for further care. The nurses assigned Apgars of 8 at 1 minute and 9 at 5 minutes. We then obtained cord blood as well as cord pH. She received IV oxytocin and using gentle traction the cord and countertraction the fundus I was able to easily deliver the placenta intact. He had a normal three-vessel cord. There were no perineal or vaginal lacerations. She has a positive blood, she is rubella immune and was group B streptococcus negative. She plans to bottlefeed. Estimated blood loss was approximately 600 cc. Placental Delivery Description: Spontaneous
[2020-02-17 14:56] LABS: Cord Blood PH 7.35 (7.35-7.45)
[2020-02-18 07:07] LABS: Hematocrit 32.8 % (37.0-47.0); Hemoglobin 11.2 g/dL (12.2-16.2)
[2020-02-18 08:00] VITALS: BP 114/77; PULSE 55; RESP 18; TEMP 36.7; O2SAT 99
--- NOTE | 2020-02-18 09:20 | HMH.ACPN2 ---
Internal Medicine - PN: Subj *Date: 02/18/20 *Time: 09:20 Interval history: She is doing well this morning. She is eating and drinking and ambulating. She is breast-feeding. Her lochia is normal. Exam Vital signs and Labs for Last 24 Hours: Temp Pulse Resp BP Pulse Ox 98.3 F 55 L 16 122/94 H 100 02/17/20 19:42 02/17/20 19:42 02/17/20 19:42 02/17/20 19:42 02/17/20 19:42 Laboratory Results - last 24 hr 02/17/20 14:53: Cord ABG pH 7.35 02/18/20 06:16: Hgb 11.2 L, Hct 32.8 L I & O for Last 24 hours: Intake & Output 02/15/20 02/16/20 02/17/20 02/18/20 11:59 11:59 11:59 11:59 Weight 132 lb 7 oz Microbiology Reports for the Last 24 Hours: Microbiology 02/17/20 06:20 Urine,Clean Catch Urine Culture - Preliminary - Constitutional no acute distress - *Routine HEENT Exam Head: Present: normocephalic Eye: Present: EOMI, PERRL ENT: Present: mucous membranes moist Assessment and Plan (1) Intrauterine growth restriction (IUGR) affecting care of mother Current visit: Yes Status: Acute Category: Medical Code(s): O36.5990 - Maternal care for other known or suspected poor growth, unspecified trimester, not applicable or unspecified (2) complicated by subutex maintenance, antepartum Current visit: Yes Status: Acute Category: Medical Code(s): O99.320 - Drug use complicating , unspecified trimester; F11.20 - Opioid dependence, uncomplicated (3) Normal delivery Current visit: Yes Status: Acute Category: Medical Code(s): O80 - Encounter for full-term uncomplicated delivery - Assessment and plan all Dx Assessment and Plan for all problems:: She is doing well this morning. We will plan to send her home tomorrow.
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
--- NOTE | 2020-02-18 17:14 | P.DS_ITS ---
General - General Admission date:: 02/17/20 Discharge date: 02/18/20 HPI HPI: She is a 29-year-old 5 now para 4 who was 38 weeks gestational age. She had a small for gestational age infant and as result of that we elected to bring her in for induction of labor at term. Hospital Course Hospital Course: She was started on IV oxytocin had her membranes ruptured. Under labor epidural she progressed to full dilation and delivered spontaneously a liveborn female child at 2:37 PM in the afternoon of February 17, 2020. The baby had Apgars of 8 at 1 minute and 9 at 5 minutes. Baby weighed 5 pounds 4 ounces. She has done well and has remained afebrile with her hospitalization. She is eating and drinking and ambulating. She is breast- feeding. She has a positive blood, she is rubella immune and was group B streptococcus negative. Her machine striper Dr. Akbar. She will follow-up with me in approximately 2 weeks time. She will continue with her vitamins and iron. She is taking [id number] analgesics. She continues to take her Subutex. Her condition on discharge is stable and improved. She is being discharged home a day early because her baby has a small pneumoth orax and is being transferred to . Rhogam Administration: Not Indicated Objective Vital signs: Temp Pulse Resp BP Pulse Ox 98.0 F 55 L 18 114/77 99 02/18/20 08:00 02/18/20 08:00 02/18/20 08:00 02/18/20 08:00 02/18/20 08:00 no acute distress - *Routine HEENT Exam Head: Present: normocephalic Eye: Present: EOMI, PERRL ENT: Present: mucous membranes moist Results Labs on day of discharge: Labs from last 24 hours 02/18/20 06:16 Hgb 11.2 L Hct 32.8 L Preliminary micro results at discharge 02/17/20 06:20 Urine Culture - Preliminary Urine,Clean Catch DS: Diagnosis - Discharge Diagnosis (1) Intrauterine growth restriction (IUGR) affecting care of mother Status: Acute (2) complicated by subutex maintenance, antepartum Status: Acute (3) Normal delivery Status: Acute Discharge Plan - Patient Discharge Instructions ACTIVITY: No heavy lifting DIET: continue same diet - Follow up Plan Disposition: Home, Self-Half-Way Medications: Home Medications Medication Instructions Recorded Confirmed Type buprenorphine HCl 8 mg sublingual 8 mg SUBLINGUAL DAILY 01/04/18 02/18/20 History tablet Vit Calc,Iron,Folic [Kpn] 1 tab PO DAILY 04/03/18 02/17/20 History Ferrous Fumarate [Ferretts] 325 mg PO DAILY 02/17/20 02/17/20 History buprenorphine HCL [Buprenorphine 12 mg SL HS 02/18/20 02/18/20 History HCl] Prescriptions/Medication Reconciliation: Continued buprenorphine HCl 8 mg sublingual tablet 8 mg SUBLINGUAL DAILY buprenorphine HCL [Buprenorphine HCl] 12 mg SL HS Vit Calc,Iron,Folic [Kpn] 1 tab PO DAILY Ferrous Fumarate [Ferretts] 325 mg PO DAILY - Problem Reconciliation Problems Reviewed?: Yes
[2020-02-22 07:31] LABS: Buprenorphine, Urine Positive (Cutoff=10)
--- NOTE | 2020-02-23 12:34 | SW/DCPLANNER ---
Addendum entered by Daija Nance 03/02/20 11:49: I have faxed cord screen results to [facility] with [facility] at [phone] Original Note: I have received a phone call from [facility] [employer] [facility] ([facility] [phone]) regarding this patients urine drug screen and infants cord screen. Infants cord screen has NOT resulted at this time.
== END 2020-02-18 17:30 | disposition home or self-care (01) | DRG 806 ==
PROVIDERS: Internal Medicine Cardiovascular Disease; Admitting Provider Nurse Practitioner Obstetrics & Gynecology; Visit Provider Nurse Practitioner Obstetrics & Gynecology
DX: O36.5930 Maternal care for other known or suspected poor fetal growth, third trimester, not applicable or unspecified (principal); O99.323 Drug use complicating pregnancy, third trimester; Z37.0 Single live birth; Z3A.38 38 weeks gestation of pregnancy; F11.21 Opioid dependence, in remission; O69.81X0 Labor and delivery complicated by cord around neck, without compression, not applicable or unspecified
CPT/HCPCS: 59409; 36415; 59025; 80305; 80307; 81001; 82800; 85014; 85018; 85025; 86328; 86850; 87086; 94761; J0571